=== PATIENT | female | born 1985 | race Caucasian/White ===

== ENCOUNTER → 2023-05-06 15:05 | Outpatient (REF) | payer OTHER, SELFPAY | LOC: RAD 15:05 | PROVIDERS: ATTENDING PHYSICIAN Physician Assistant; FAMILY PHYSICIAN Family Medicine | DX: E06.3 Autoimmune thyroiditis (principal); Z86.39 Personal history of other endocrine, nutritional and metabolic disease | CPT/HCPCS: 76536 ==

== ENCOUNTER 2024-03-24 08:40 | Emergency (ER) | payer OTHER, SELFPAY ==
[2024-03-24 09:13] VITALS: BMI 22.7
[2024-03-24 09:28] VITALS: BP 114/80
--- NOTE | 2024-03-24 09:38 | ED.GENMED ---
History of Present Illness
General
Chief Complaint: Chest Pain
Source: patient
Exam Limitations: none
Time Seen by Provider: 03/24/24 09:27
Nursing documentation reviewed up to this point in time: agreed with
History of Present Illness
History of Present Illness:
38-year-old female Scotty's and Graves' followed by endocrinology 2 weeks of chest pain palpitations headache fast heart rates worse with standing nausea without vomiting no diarrhea no fever has had some heavy periods for the past year or so
mildly anemic previously, no abdominal pain no calf pain pain today to going to her back tells me she had blood work recently and her TSH free T3 and T4 were within normal limit she is scheduled to see a practitioner at the [facility] later
this week
Past History
Past History
ED Past Medical History: Hypothyroidism
ED Past Surgical History: Gynecological and Other (Dental implants)
Social History
Tobacco: Smoker
Alcohol: Occasional
Drug: None
Personal:
Living: with family
Employment: Employed
Family History
Family History: Negative CAD
Review of Systems
Review of Systems
All Other Systems: Not applicable
Constitutional: Reports fatigue; Denies fever
EENT: Reports no symptoms
Respiratory: Reports no symptoms
Cardiac: Reports chest pain and palpitations; Denies diaphoresis or syncope
ABD/GI: Reports nausea; Denies abdominal pain or diarrhea
: Reports no symptoms
Musculoskeletal: Reports no symptoms
Skin: Reports no symptoms
Neurological: Reports headache and weakness
Endocrine: Reports no symptoms
Hematologic/Lymphatic: Reports no symptoms
Phy Exam
Physical Exam
Physical Exam:
Physical Exam
General: no apparent distress, not acutely ill
Neck: No jaundice no goiter
Heart: Tachycardic
Lungs: no acute respiratory distress. clear bilaterally
Abdomen: Not tender
Neuro: alert and oriented. no focal neurological deficits
Skin: no rash
Psychiatric: well kept. interactive and cooperative
Extremities: no edema. no calf tenderness.
Scores
Heart Score for Chest Pain Patients
STEMI patient?: No
History: Slightly or Non-Suspicious
ECG: Normal
Age: </= 45 years
Risk Factors: No Risk Factors
Troponin: </= Normal Limit
Heart Score for Chest Pain Patients: 0
Heart Score Risk: 2.5% MACE over next 6 weeks
Course
Orders/Labs/Results
Orders:
Orders
03/24/24 08:45
ECG [Electrocardiogram (*1)] Urgent
Reason for Study: Chest Pain
EKG- Treatment ONCE
03/24/24 09:28
Add On- LAB Urgent
Tests Added?: lipase, serum hcg qualitative
CR Chest - 2 Views Urgent
Comment:
Reason For Exam: cp
03/24/24 09:30
C-Reactive Protein Urgent
Comment: ADD ON
Complete Blood Count/With Diff Urgent
Comprehensive Metabolic Panel Urgent
D-Dimer Urgent
Erythrocyte Sed Rate Urgent
Comment: ADD ON
Free T4 Urgent
Comment: ADD ON
HCG, Serum Qualitative Screen Urgent
Comment: ADD ON
Lipase Urgent
Comment: ADD ON
TSH Urgent
Comment: ADD ON
Troponin I Urgent
03/24/24 09:38
Add On- LAB Urgent
Tests Added?: esr/crp/tsh/freet4
03/24/24 09:39
Ketorolac [Toradol] 30 mg IV NOW STA
03/24/24 09:40
Orthostatic VS- Treatment ONCE
03/24/24 10:57
0.9% Sodium Chloride 1000 ml [Nss] 1,000 ml IV BOLUS
Abnormal Lab Results
03/24/24
09:30
WBC 4.7 L 10^3/uL
(4.8-10.8)
RBC 4.12 L 10^6/uL
(4.20-5.40)
Hct 36.3 L %
(37.0-47.0)
MPV 10.6 H fL
(7.4-10.4)
Alkaline Phosphatase 36 L U/L
(38-126)
03/24/24 09:30
03/24/24 09:30
Vital Signs
Initial and Last Documented VS:
Initial Vital Signs
Temp Pulse Resp Pulse Ox
97.9 F 104 20 100
03/24/24 08:41 03/24/24 08:41 03/24/24 08:41 03/24/24 08:41
Last Documented Vital Signs
Temp Pulse Resp BP Pulse Ox
97.9 F 79 20 104/72 100
03/24/24 08:41 03/24/24 13:00 03/24/24 13:00 03/24/24 10:00 03/24/24 13:00
MDM/Problems Addressed
Differential Diagnosis Includes:
Thyroid abnormality electrolyte abnormality anemia pericarditis PE doubt ACS less likely dissection
MDM/Problems Addressed:
Chest pain palpitation
Chronic conditions affecting care:
Thyroid
Acute Exacerbation and/or Progression of Chronic Illness:
Thyroid
*Radiology
Radiology exam reviewed: preliminary read by ED provider
*Pulse Oximetry
Patient hypoxic: no
*EKG
Interpretation: abnormal
Comparison EKG: no comparison EKG present
Heart Rate: 118
Rate: tachycardiac
Rhythm: sinus
Ischemia: non-specific ST changes
*[employer] Interpretation
Rate: tachycardiac
Interpretation: abnormal
Heart Rate: 108
Rhythm: sinus
*Critical Care Note
Total Time (30-74mins, 75-104mins- exclusive of procedures): Not Applicable
Update Note
Update Note:
Update labs noted chest x-ray noted EKG noted heart rate down will continue IV fluids, patient appears comfortable
ED Attending Note
-
Portions of this chart may have been created with voice recognition software.� Occasional wrong word or��sound alike� substitutions may have occurred due to the inherent limitations of voice recognition software.
Discharge Plan
Departure
Patient Disposition: Home (Routine Discharge)
Date of Disposition: 03/24/24
Time of Disposition: 13:18
Patient with high blood pressure during this ER visit?: No
Condition: Good
Covid-19: Not Applicable
Discharge Problem:
Chest pain
Instructions: Palpitations ED, Chest Pain PCP Follow Up
Prescriptions:
No Action
acetaminophen 325 MG tablet
650 mg PO Q4HPRN PRN (Reason: mild pain) 0RF
Mirena 21 mcg/24hr (up to 8 yrs) 52 mg Intrauterine Device
1 device INTRAUTERINE ONCE
Referrals:
Solo Angel MD [Family Provider] -
Activity Restrictions/Additional Instructions:
Drink plenty of fluids
Tylenol or ibuprofen for pain follow-up with your primary care provider and [facility] as scheduled
Interventions
Interventions:
*Risk Screen - Suicide Last Done: 03/24/24 08:45
*Neglect/Abuse Screening Last Done: 03/24/24 09:18
*ED COVID-19 Vaccine History Last Done: 03/24/24 09:18
*Nursing Disposition Last Done: 03/24/24 13:51
ED- Cardiac Assessment Last Done: 03/24/24 09:27
Discharge Date and Time
Discharge Date/Time: 03/24/24 13:51
Print Language: YAKUT
[2024-03-24 09:44] LABS: % Basophils 1.3 % (0-2); % Eosinophils 3.2 % (0-6); % Immature Granulocytes 0.2 % (0-0.5); % Lymphocytes 30.9 % (20.5-51.1); % Monocytes 8.1 % (1.7-9.3); % Neutrophils 56.3 % (42.2-75.2); Absolute Basophils 0.1 10^3/uL (0-0.2); Absolute Eosinophils 0.2 10^3/uL (0-0.7); Absolute Lymphocytes 1.5 10^3/uL (1.2-3.4); Absolute Monocytes 0.4 10^3/uL (0.1-0.6); Absolute Neutrophils 2.7 10^3/uL (1.4-6.5); Hematocrit 36.3 % (37.0-47.0); Hemoglobin 12.1 g/dL (12.0-16.0); Mean Corp Hgb Conc. 33.3 g/dL (33.0-37.0); Mean Corpuscular Hgb 29.4 pg (27.0-31.0); Mean Corpuscular Volume 88.1 fL (81.0-99.0); Mean Platelet Volume 10.6 fL (7.4-10.4); Nucleated Red Blood Cells % 0 %; Platelet Count 251 10^3/uL (130-400); Red Blood Cell Count 4.12 10^6/uL (4.20-5.40); Red Cell Dist. Width 13.2 % (11.5-14.5); White Blood Cell Count 4.7 10^3/uL (4.8-10.8)
[2024-03-24 09:53] LABS: ALT (SGPT) 14 U/L (0-35); AST (SGOT) 19 U/L (14-36); Alkaline Phosphatase 36 U/L (38-126); Blood Urea Nitrogen 11 mg/dl (7-17); Carbon Dioxide 30 mmol/L (22-30); Estimated Creatinine Clearance 88 ml/min; Glucose 88 mg/dl (70-99); Potassium 4.1 mmol/L (3.5-5.1); Sodium 140 mmol/L (135-145); Total Bilirubin 0.4 mg/dl (0.2-1.3); Total Protein 7.7 g/dl (6.3-8.2); eGFR > 60.00
[2024-03-24 09:57] LABS: D-Dimer 0.34 ug/mlFEU (0.00-0.50)
[2024-03-24 10:00] VITALS: BP 104/72
[2024-03-24 10:05] LABS: Troponin I < 0.012 ng/ml
[2024-03-24 10:07] VITALS: BP 102/65; BP 112/78; BP 120/80; PULSE 101; PULSE 92; PULSE 98
[2024-03-24] MEDS: TORADOL 30 MG IV (10:10)
[2024-03-24 10:20] LABS: HCG, Serum Qualitative Screen Negative
[2024-03-24 10:28] LABS: Chloride 103 mmol/L (98-107); Lipase 116 U/L (23-300)
[2024-03-24 10:39] LABS: C-Reactive Protein < 5.00 mg/L (0.0-10.00)
[2024-03-24 10:56] LABS: Free T4 0.96 ng/dl (0.78-2.19)
[2024-03-24 10:59] LABS: Erythrocyte Sed Rate 4 mm/hour (0-20)
[2024-03-24 11:10] LABS: TSH 2.68 uIU/ml (0.47-4.68)
[2024-03-24] MEDS: NSS 1000 IV (11:20)
== END 2024-03-24 13:51 | disposition home or self-care (01) ==
LOC: EMR 08:40
PROVIDERS: EMERGENCY PHYSICIAN Emergency Medicine; FAMILY PHYSICIAN Family Medicine
DX: R07.9 Chest pain, unspecified (principal); R00.2 Palpitations; F17.200 Nicotine dependence, unspecified, uncomplicated; E06.3 Autoimmune thyroiditis
CPT/HCPCS: 99285; 96374; 96361; 71046; 80053; 83690; 84439; 84443; 84484; 84703; 85025; 85379; 85652; 86140; 93005